=== PATIENT | female | born 1995 | race Caucasian/White ===

== ENCOUNTER 2022-04-28 02:55 | Emergency (ER) | payer OTHER ==
[~2022-04-28] VITALS: Ht 167.6 cm; Wt 108.9 kg
[2022-04-28 02:59] VITALS: BP 140/96
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
--- NOTE | 2022-04-28 03:01 | NUR ---
PT BIBA BLS. TAKEN TO BED 9
--- NOTE | 2022-04-28 03:10 | NUR ---
pt ambulatory to bathroom w steady gait.
[2022-04-28] MEDS: HYDROcodone/APAP 5/325 MG 1 TAB TAB PO ONE (03:21)
--- NOTE | 2022-04-28 03:28 | NUR ---
Pt report given to augustina paulino. Transfer of care at this time.
--- NOTE | 2022-04-28 03:35 | NUR ---
PT TAKEN TO CT
--- NOTE | 2022-04-28 03:49 | NUR ---
pt back from CT
[2022-04-28 05:07] VITALS: BP 130/83
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
== END 2022-04-28 05:07 | disposition home or self-care (01) ==
LOC: MED 02:55
DX: S09.90XA Unspecified injury of head, initial encounter (principal); I10 Essential (primary) hypertension; Z88.0 Allergy status to penicillin; V89.2XXA Person injured in unspecified motor-vehicle accident, traffic, initial encounter; Y93.89 Activity, other specified; Y92.410 Unspecified street and highway as the place of occurrence of the external cause; Y99.8 Other external cause status
CPT/HCPCS: 70450; 72125; 81025; 99284